=== PATIENT | female | born 1940 | race Caucasian/White ===

== ENCOUNTER 2018-01-06 16:36 | Emergency (ER) | payer MEDICARE, OTHER ==
[2018-01-06 16:36] VITALS: BMI 34.1
[2018-01-06 17:12] VITALS: RESP 18
--- NOTE | 2018-01-06 18:46 | C.PDOC ---
History Of Present Illness 77 to female w/PMhx of OA, HTN, NIDDM, was sent to ED by PMD for Doppler US of LLE. Pt reports, has Left ankle pain, intermittent for past 2 months associated with mild swelling. Pt admits, was seen by PMD in 12/25/2017 due to same complaints, had Doppler US LLEdone with negative results.( has copy of report). Pt sts, was seen by another doctor today, "who sent me here to Ed for another Doppler test". Pt describes pain as localized over left ankle, non-radiating. Otherwise, pt denies known trauma or injury, fever, chills, recent illness, CP, SOB, dyspnea, diaphoresis, deneis left calf pain, palpitation, denies skin changes over B/L LEs, denies weakness, sensory or vascular deficits to B/L LEs. Ambulate to ED for evaluation, not in any apparent distress. At present time, pt denies any active complaints. Time Seen by Provider: 01/06/18 17:18 Chief Complaint (Nursing): Lower Extremity Problem/Injury History Per: Patient Past Medical History Reviewed: Historical Data, Nursing Documentation, Vital Signs Vital Signs: Last Vital Signs Temp 98 F 01/06/18 19:08 Pulse 87 01/06/18 19:08 Resp 18 01/06/18 19:08 BP 143/89 01/06/18 19:08 Pulse Ox 99 01/06/18 19:08 - Medical History PMH: HTN, Hypercholesterolemia Denies: Chronic Kidney Disease Family History: States: No Known Family Hx - Social History Hx Alcohol Use: No Hx Substance Use: No - Immunization History Hx Tetanus Toxoid Vaccination: No Hx Influenza Vaccination: No Hx Pneumococcal Vaccination: No Review Of Systems Except As Marked, All Systems Reviewed And Found Negative. Constitutional: Negative for: Fever, Chills Eyes: Negative for: Vision Change Cardiovascular: Negative for: Chest Pain, Palpitations, Edema, Light Headedness Respiratory: Negative for: Cough, Shortness of Breath, SOB with Excertion, Pleuritic Pain, Wheezing Gastrointestinal: Negative for: Nausea, Vomiting, Abdominal Pain, Diarrhea Genitourinary: Negative for: Dysuria Musculoskeletal: Positive for: Leg Pain (Left ankle pain). Negative for: Neck Pain, Back Pain Skin: Negative for: Rash Neurological: Negative for: Weakness, Numbness, Altered Mental Status, Headache , Dizziness Physical Exam - Physical Exam Appears: Well, Non-toxic, No Acute Distress Skin: Normal Color, Warm, No Rash, No Ecchymosis Nose: No Flaring Oral Mucosa: Moist Throat: No Drooling Neck: Supple Cardiovascular: Rhythm Regular, No Murmur, No JVD Respiratory: No Decreased Breath Sounds, No Accessory Muscle Use, No Rales, No Rhonchi, No Stridor, No Wheezing Extremity: Normal ROM (FAROM of Left ankle and foot, no neurovascular deficits.) , No Calf Tenderness (Left), Capillary Refill (less than 2 sec to left foot), Deformity, Swelling (mild edema noted over medial alnd lateral malleolus over left ankle, non-pitting. No skin changes.) Neurological/Psych: Oriented x3, Normal Speech, Normal Motor, Normal Sensation, Normal Reflexes ED Course And Treatment O2 Sat by Pulse Oximetry: 98 Pulse Ox Interpretation: Normal - Other Rad lEFT ANKLE AND FOOT X-Ray: Interpreted by Me, Viewed By Me Interpretation: mod djd, bone spur. no acute fx or dislocation Progress Note: On re-evaluation, pt is afebrile, hemodynamicaly stable. Non- toxic. PulsEOx 98% RA. non-tachycardic. Lungs: CTA B/L, BS equal B/L. Left LE : mild trace ankle edema, (-) pitting with mild tenderness over medial and lateral malloelus. No skin changes, (-) Left calf tenderness. no deformity. Vascular study is not at this time at [facility]. Pt denies CP, SOB, dyspnea, cough or any other active complaints. Case discussed with ED attending , since the complaint is localized to intermittent ankle edema and pain, no need for emergent anticoagulation at present time. Pt was strongly advised to return to ED tommorow AM for vascular study. return to ED at any time if any worsening or new changes. Pt understand and agrees with discharge now. Disposition Counseled Patient/Family Regarding: Diagnosis, Need For Followup - Disposition Disposition: HOME/ ROUTINE Disposition Time: 17:55 Condition: STABLE Additional Instructions: RETURN TO EMERGENCY TOMORROW MORNING FOR DOPPLER US OF LEFT LEG RETURN TO ED AT ANY TIME IF ANY WORSENING OR NEW CHANGES. Instructions: Leg Edema (ED), Arthralgia (ED) Forms: [employer] (Cameroonian) Print Language: INDONESIAN - Clinical Impression Clinical Impression: Joint swelling, Ankle arthralgia
[2018-01-06 19:19] VITALS: BP 143/89; PULSE 87; TEMP 98
--- NOTE | 2018-01-06 20:37 | RAD ---
PROCEDURE: Left ankle radiographs Left foot radiographs HISTORY: PAIN COMPARISON: None available FINDINGS: BONES: No acute displaced fracture. Calcaneal enthesophyte and heel spur. JOINTS: No dislocation. SOFT TISSUES: Soft tissue swelling. No evidence of radiopaque foreign body. Dense vascular calcifications. OTHER FINDINGS: None. IMPRESSION: Degenerative changes.
[2018-01-07 10:27] VITALS: O2SAT 98
== END 2018-01-06 19:19 | disposition home or self-care (01) ==
LOC: C.ER 16:36
DX: M25.572 Pain in left ankle and joints of left foot (principal); M25.472 Effusion, left ankle; E11.9 Type 2 diabetes mellitus without complications; I10 Essential (primary) hypertension; E78.00 Pure hypercholesterolemia, unspecified

== ENCOUNTER 2018-01-07 09:05 | Emergency (ER) | payer MEDICARE, OTHER ==
[2018-01-07 09:05] VITALS: BMI 34.1
[2018-01-07 09:10] VITALS: TEMP 97; O2SAT 98
[2018-01-07] MEDS ORDERED: Enoxaparin 40 mg Syringe SC STA (10:15)
--- NOTE | 2018-01-07 10:23 | C.PDOC ---
History Of Present Illness VIA TRANS REFERRED FOR DOPPLER R/O DVT. S/P EVAL 01/06 FOR SAME. L CALF SWELLING X 3 WEEKS. OCC CRAMPING. NO PAIN, CP, SOB OTHER ASSOC SX. NO TRAUMA EXAM NARD NONTOXIC APPEARS COMFORTABLE EXT +SWELLING L LOWER LEG COMPARED TO RIGHT. NONPITTING. NONTEND GOOD PERFUSION SKIN WNL Time Seen by Provider: 01/07/18 09:19 Chief Complaint (Nursing): Lower Extremity Problem/Injury History Per: Patient History/Exam Limitations: no limitations Onset/Duration Of Symptoms: Days Past Medical History Reviewed: Historical Data, Nursing Documentation, Vital Signs Vital Signs: Last Vital Signs Temp 97.0 F L 01/07/18 09:08 Pulse 78 01/07/18 10:35 Resp 16 01/07/18 10:35 BP 138/84 01/07/18 10:35 Pulse Ox 98 01/07/18 10:56 - Medical History PMH: HTN, Hypercholesterolemia Family History: States: No Known Family Hx - Social History Hx Alcohol Use: No Hx Substance Use: No - Immunization History Hx Tetanus Toxoid Vaccination: No Hx Influenza Vaccination: No Hx Pneumococcal Vaccination: No Review Of Systems Except As Marked, All Systems Reviewed And Found Negative. Cardiovascular: Negative for: Chest Pain Respiratory: Negative for: Shortness of Breath Gastrointestinal: Negative for: Nausea, Vomiting Musculoskeletal: Positive for: Other ((+) left calf swelling) Neurological: Negative for: Weakness, Numbness Physical Exam - Physical Exam Appears: Non-toxic, No Acute Distress Skin: Warm, Dry, No Rash Eye(s): bilateral: Normal Inspection, PERRL, EOMI Oral Mucosa: Moist Respiratory: Normal Breath Sounds, No Rales, No Rhonchi, No Stridor, No Wheezing Extremity: No Tenderness, Swelling (left lower leg compares to right, nonpitting ), Other (Left Leg - good perfusion) Neurological/Psych: Oriented x3, Normal Speech, Normal Sensation ED Course And Treatment O2 Sat by Pulse Oximetry: 98 (RA) Pulse Ox Interpretation: Normal - Other Rad VENOUS L LE X-Ray: Viewed By Me (PER CIRCULAR CLERK REPORT +DVT L POPLITEAL @ [facility] VEINS) Reevaluation Time: 10:24 Reassessment Condition: Unchanged (PT ADVISED NEED FOR PMD FU PRISCILLA FOR USP MANAGEMENT. PS IS SEEING PMD ON TUESDAY.) Medical Decision Making Medical Decision Making: PLAN: * Venous Duplex * Lovenox SC Disposition Counseled Patient/Family Regarding: Studies Performed, Diagnosis, Need For Followup, Rx Given - Disposition Referrals: YOUR,PMD [Other] [facility] [Outside] [facility] [Outside] Disposition: HOME/ ROUTINE Disposition Time: 10:18 Condition: IMPROVED Prescriptions: Apixaban [Eliquis] 5 mg PO BID #28 tab Instructions: Deep Venous Thrombosis (ED) Forms: [employer] (Jamaican) Print Language: LATVIAN - Clinical Impression Clinical Impression: Deep venous thrombosis of lower extremity - Scribe Statement The provider has reviewed the documentation as recorded by the Joseph Meléndez Provider Attestation: All medical record entries made by the Joseph were at my direction and personally dictated by me. I have reviewed the chart and agree that the record accurately reflects my personal performance of the history, physical exam, medical decision making, and the department course for this patient. I have also personally directed, reviewed, and agree with the discharge instructions and disposition.
[2018-01-07] MEDS ORDERED: Enoxaparin 100 mg Syringe ONE (10:31)
[2018-01-07 10:36] VITALS: BP 138/84; PULSE 78; RESP 16
--- NOTE | 2018-01-09 10:30 | VASCLAB ---
PROCEDURE: Left Lower Extremity Venous Duplex Exam. HISTORY: pain Left leg edema PRIORS: None. TECHNIQUE: Left common femoral, femoral, popliteal and posterior tibial, peroneal and great saphenous veins were evaluated. Flow was assessed with color Doppler, compressibility, assessment of phasic flow and augmentation response. Report prepared by Sánchez Vazquez, T FINDINGS: LEFT: 1. Common Femoral Vein: 1.1. Compressibility - Fully compressible: Thrombus - None : Flow - Phasic: Augmentation -Normal: Reflux - . 2. Femoral Vein: 2.1. Compressibility - Fully compressible: Thrombus - None: Flow - Phasic: Augmentation -Normal: Reflux - . 3. Popliteal Vein: 3.1. Compressibility - Incompressible: Thrombus - Acute: Flow - Absent : Augmentation -None: Reflux - . 4. Posterior Tibial Vein: 4.1. Compressibility - Fully compressible: Thrombus - None: Flow - : Augmentation -: Reflux - . 5. Peroneal Vein: 5.1. Compressibility - Fully compressible: Thrombus - None: Flow - : Augmentation -: Reflux - . 6. Great Saphenous Vein: 6.1. Compressibility - Fully compressible: Thrombus - None: Flow - Phasic: Augmentation - : Reflux - . OTHER FINDINGS: The LEFT gastrocnemius veins behind the knee were dilated and occluded also with echolucent THROMBUS. IMPRESSION: There was evidence of acute deep venous THROMBOSIS of the left lower extremity. No Superficial vein thrombosis of the left lower extremity. Normal venous flow noted in the right common femoral vein.
== END 2018-01-07 10:35 | disposition home or self-care (01) ==
LOC: C.ER 09:05
DX: I82.432 Acute embolism and thrombosis of left popliteal vein (principal)
CPT/HCPCS: 93971; 96372; 99283; J1650